=== PATIENT | female | born 1955 | race Caucasian/White ===

== ENCOUNTER 2024-11-07 09:54 | Day surgery (SDC) | payer MEDICARE, OTHER ==
[2024-11-06 09:15] VITALS: BMI 27.6
[2024-11-07] MEDS ORDERED: AFRIN NASAL MIST 15 ML BOT ONE (10:38)
[2024-11-07] MEDS ORDERED: PROPOFOL 20 ML ONE (11:56)
[2024-11-07] MEDS ORDERED: Lidocaine 1% PF 5 ML VIAL ONE (11:58)
[2024-11-07] MEDS ORDERED: Bacitracin 1 PK ONE (11:59)
[2024-11-07] MEDS ORDERED: Lidocaine 1% w/Epinephrine 1:200K 30 ML VIAL ONE (11:59)
[2024-11-07] MEDS ORDERED: Ondansetron PF 4 MG/2 ML Vial ONE (12:37)
[2024-11-07] MEDS ORDERED: SUGAMMADEX SODIUM 200 MG/2 ML VIAL ONE (13:04)
[2024-11-07] MEDS ORDERED: Rocuronium Bromide 10 MG/ML (10ML VIAL) ONE (13:05)
[2024-11-07] MEDS ORDERED: Oxymetazoline HCl 0.05% (15 ML) ONE (13:17)
[2024-11-07] MEDS ORDERED: HYDROcodone/Acetaminophen 5/325 mg Tablet ONE (14:20)
== END 2024-11-07 14:55 | disposition home or self-care (01) ==
LOC: CSHSDC 09:54
PROVIDERS: ATTEND Specialist
PROC: 09SM0ZZ Reposition Nasal Septum, Open Approach (ICD-10-PCS; principal; 2024-11-07)
PROC: 09TL8ZZ Resection of Nasal Turbinate, Via Natural or Artificial Opening Endoscopic (ICD-10-PCS; 2024-11-07)
DX: J34.2 Deviated nasal septum (principal); J34.3 Hypertrophy of nasal turbinates; I10 Essential (primary) hypertension; F41.9 Anxiety disorder, unspecified; F32.A Depression, unspecified; Z98.84 Bariatric surgery status; Z90.49 Acquired absence of other specified parts of digestive tract; Z79.899 Other long term (current) drug therapy
CPT/HCPCS: 30520; 30140; 93005; J1100; J2405; J2704; J3010; 93010